=== PATIENT | female | born 1950 | race Caucasian/White ===

== ENCOUNTER 2024-02-23 13:00 | Emergency (ER) | payer BC, OTHER ==
[~2024-02-23] VITALS: Ht 154.9 cm; Wt 58.5 kg
[~2024-02-23 13:00] MED LIST: LISI-782 PO
[2024-02-23 13:07] VITALS: O2SAT 98
[2024-02-23] MEDS: HYDROCODONE/APAP 5-325MG TABLET PO ONE (13:26)
[2024-02-23] MEDS ORDERED: HYDROCODONE/APAP 5-325MG TABLET ONE (13:26)
[2024-02-23 13:35] LABS: BASOPHILS % (AUTO) 0.1 % (0.0-2.0); HEMATOCRIT 38.1 % (31.2-41.9); LYMPHOCYTES # (AUTO) 0.4 K/uL (0.8-4.8); LYMPHOCYTES % (AUTO) 5.2 % (20.5-51.5); MEAN CORPUSCULAR HEMOGLOBIN 32.8 uug (24.7-32.8); MEAN CORPUSCULAR HGB CONC 34 g/dL (32.3-35.6); MEAN CORPUSCULAR VOLUME 96.4 fL (75.5-95.3); MONOCYTES # (AUTO) 1.1 K/uL (0.1-1.30); MONOCYTES % (AUTO) 13.3 % (0.0-11.0); NEUTROPHILS # (AUTO) 6.5 K/uL (1.8-8.9); NEUTROPHILS % (AUTO) 81.4 % (38.5-71.5); PLATELET COUNT (AUTO) 174 K/uL (179-408); RED BLOOD CELL COUNT(AUTO) 3.96 MIL/uL (3.63-4.92); RED CELL DISTRIBUTION WIDTH 13.4 % (12.3-17.7)
[2024-02-23 13:49] LABS: CALCIUM 8.8 mg/dL (8.5-10.1); CARBON DIOXIDE 26 mmol/L (21-32); CHLORIDE 96 mmol/L (98-107); CREATININE 0.8 mg/dL (0.6-1.3); GLUCOSE 150 mg/dL (74-106); POTASSIUM 4.2 mmol/L (3.5-5.1); SODIUM SERUM 134 mmol/L (136-145); UREA NITROGEN, BLOOD 10 mg/dL (7-18)
[2024-02-23 13:54] LABS: DIFFERENTIAL COMMENT 1
[2024-02-23 14:03] LABS: ERYTHROCYTE SEDIMENTATION RATE 30 MM/HR (0-20)
[2024-02-23 14:20] LABS: ALANINE AMINOTRANSFERASE 50 U/L (14-59); ALBUMIN 3.5 g/dL (3.4-5.0); ALKALINE PHOSPHATASE 110 U/L (50-136); ASPARTATE AMINOTRANSFERASE 61 U/L (15-37); BILIRUBIN,DIRECT 0.5 mg/dL (0.0-0.2); BILIRUBIN,TOTAL 1.8 mg/dL (0.2-1.0); MAGNESIUM 1.9 mg/dL (1.8-2.4); TOTAL PROTEIN, SERUM 7.1 g/dL (6.4-8.2)
[2024-02-23] MEDS ORDERED: ACET1TAB23 PO (15:24)
[2024-02-23] MEDS ORDERED: WALK1EAC55 MC (15:32)
--- NOTE | 2024-02-23 16:00 | NUR ---
Patient discharged to home in stable condition with son. Written and verbal after care instructions given. Patient/son verbalizes understanding of instructions. Stressed follow up or return to ER for worsening s/s.
== END 2024-02-23 16:00 | disposition home or self-care (01) ==
LOC: ER 13:02
DX: M79.671 Pain in right foot (principal); R74.01 Elevation of levels of liver transaminase levels; F32.A Depression, unspecified; Z79.1 Long term (current) use of non-steroidal anti-inflammatories (NSAID); Z79.899 Other long term (current) drug therapy
CPT/HCPCS: 36415; 73630; 83735; 84550; 85025; 85651; A4606; A4663

== ENCOUNTER 2025-02-28 21:13 | Inpatient (IN) | payer OTHER ==
[~2025-02-28] VITALS: Ht 142.2 cm; Wt 53.3 kg
[~2025-02-28 21:13] MED LIST changes: +ACET1TAB23 PO; +WALK1EAC55 MC
[2025-02-28 22:09] LABS: PLATELET COUNT (AUTO) 259 K/uL (179-408); RED BLOOD CELL COUNT(AUTO) 3.73 MIL/uL (3.63-4.92); RED CELL DISTRIBUTION WIDTH 13.8 % (12.3-17.7); WHITE BLOOD COUNT (AUTO) 10.6 K/uL (3.8-11.8)
[2025-02-28 22:18] LABS: CREATININE 0.7 mg/dL (0.6-1.3); SODIUM SERUM 138 mmol/L (136-145); UREA NITROGEN, BLOOD 6 mg/dL (7-18)
[2025-02-28 22:24] LABS: ASPARTATE AMINOTRANSFERASE 42 U/L (15-37); TOTAL PROTEIN, SERUM 6.7 g/dL (6.4-8.2)
[2025-02-28 23:45] LABS: *BILIRUBIN,URIN NEGATIVE (NEGATIVE); *BLOOD, URINE NEGATIVE (NEGATIVE); *CLARITY,URINE CLEAR (CLEAR); *COLOR,URINE YELLOW (YELLOW); *KETONES,URINE NEGATIVE (NEGATIVE); *PROTEIN,URINE NEGATIVE (NEGATIVE); *UROBILINOGEN,URINE 0.2 E.U./dl (NORMAL); LEUKOCYTE ESTERASE ,URINE NEGATIVE (NEGATIVE); NITRITE, URINE NEGATIVE (NEGATIVE); UGLUCOSE NEGATIVE (NEGATIVE)
[2025-03-01 00:37] VITALS: BP 130/78
[2025-03-01] MEDS ORDERED: ONDANSETRON 4 MG/2 ML VIAL IV PRN (01:00)
[2025-03-01] MEDS ORDERED: MAGNESIUM HYDROXIDE 30 ML LIQUID UDC PO PRN (01:00)
[2025-03-01] MEDS ORDERED: REMEDY ESSENTIAL ZINC PASTE 113 GM TP PRN (01:00)
[2025-03-01] MEDS ORDERED: ACETAMINOPHEN 325 MG TABLET PO PRN (01:00)
[2025-03-01] MEDS: PANTOPRAZOLE SODIUM 40 MG TABLET.DR PO SCH (06:10)
[2025-03-01 06:52] VITALS: BP 116/62; TEMP 98.7; O2SAT 97
[2025-03-01 07:28] LABS: PLATELET COUNT (AUTO) 202 K/uL (179-408); RED BLOOD CELL COUNT(AUTO) 3.42 MIL/uL (3.63-4.92); RED CELL DISTRIBUTION WIDTH 13.8 % (12.3-17.7); WHITE BLOOD COUNT (AUTO) 9.0 K/uL (3.8-11.8)
[2025-03-01 07:44] LABS: CREATININE 0.8 mg/dL (0.6-1.3); SODIUM SERUM 138 mmol/L (136-145); UREA NITROGEN, BLOOD 7 mg/dL (7-18)
[2025-03-01] MEDS: FUROSEMIDE 20 MG TABLET PO SCH (08:55)
[2025-03-01] MEDS ORDERED: SPIRONOLACTONE 100 MG TABLET PO SCH (09:00)
[2025-03-01] MEDS: SPIRONOLACTONE 50 MG TABLET PO SCH (09:25)
[2025-03-01 11:22] VITALS: BP 103/47; TEMP 97.9; O2SAT 96
[2025-03-01 15:15] VITALS: BP 112/60; TEMP 98.7; O2SAT 96
[2025-03-01 19:10] VITALS: BP 99/47; TEMP 99; O2SAT 97
[2025-03-02 06:17] VITALS: BP 106/51; TEMP 98.1; O2SAT 97
[2025-03-02 06:33] LABS: PLATELET COUNT (AUTO) 201 K/uL (179-408); RED BLOOD CELL COUNT(AUTO) 3.28 MIL/uL (3.63-4.92); RED CELL DISTRIBUTION WIDTH 13.8 % (12.3-17.7); WHITE BLOOD COUNT (AUTO) 7.8 K/uL (3.8-11.8)
[2025-03-02 06:47] LABS: CREATININE 0.7 mg/dL (0.6-1.3); SODIUM SERUM 139 mmol/L (136-145); UREA NITROGEN, BLOOD 6 mg/dL (7-18)
[2025-03-02 06:54] LABS: ASPARTATE AMINOTRANSFERASE 35.0 U/L (15-37); TOTAL PROTEIN, SERUM 5.4 g/dL (6.4-8.2)
[2025-03-02] MEDS: THIAMINE HCL 100 MG TABLET PO SCH (08:35)
[2025-03-02 11:19] VITALS: BP 109/51; TEMP 98.6; O2SAT 96
[2025-03-02] MEDS: POTASSIUM CHLORIDE 20 MEQ TAB.PRT.SR PO ONE (12:46)
[2025-03-02 15:04] VITALS: BP 117/62; TEMP 98.4; O2SAT 96
[2025-03-02 19:47] VITALS: BP 117/81; TEMP 98.9; O2SAT 96
[2025-03-02] MEDS: ACIDOPHILUS/BULGARICUS CHEW TAB PO SCH (20:18)
[2025-03-03 06:36] LABS: PLATELET COUNT (AUTO) 243 K/uL (179-408); RED BLOOD CELL COUNT(AUTO) 3.47 MIL/uL (3.63-4.92); RED CELL DISTRIBUTION WIDTH 13.9 % (12.3-17.7); WHITE BLOOD COUNT (AUTO) 9.5 K/uL (3.8-11.8)
[2025-03-03 06:39] VITALS: BP 113/68; TEMP 98; O2SAT 97
[2025-03-03 11:17] LABS: CREATININE 0.8 mg/dL (0.6-1.3); SODIUM SERUM 137 mmol/L (136-145); UREA NITROGEN, BLOOD 5 mg/dL (7-18)
[2025-03-03 11:23] LABS: ASPARTATE AMINOTRANSFERASE 31 U/L (15-37); TOTAL PROTEIN, SERUM 6.3 g/dL (6.4-8.2)
[2025-03-03 11:30] VITALS: BP 112/54; TEMP 98.4; O2SAT 98
[2025-03-03 14:59] VITALS: BP 118/57; TEMP 98.2; O2SAT 100
[2025-03-03 19:15] VITALS: BP 112/56; TEMP 98.4; O2SAT 97
[2025-03-04 06:48] VITALS: BP 107/55; TEMP 98.9; O2SAT 97
[2025-03-04 07:07] LABS: ASPARTATE AMINOTRANSFERASE 28 U/L (15-37); CREATININE 0.7 mg/dL (0.6-1.3); SODIUM SERUM 139 mmol/L (136-145); TOTAL PROTEIN, SERUM 5.8 g/dL (6.4-8.2); UREA NITROGEN, BLOOD 4 mg/dL (7-18)
[2025-03-04] MEDS ORDERED: THIA100T13 PO (12:31)
[2025-03-04] MEDS ORDERED: SPIR50TA PO (12:31)
[2025-03-04] MEDS ORDERED: ACID1TAB4 PO (12:31)
[2025-03-04] MEDS ORDERED: FURO40TA5 PO (12:31)
[2025-03-04 13:38] LABS: TOTAL VOLUME,BODY FLUID 1800 mL
[2025-03-04 14:46] LABS: WBC, BODY FLUID 130 /cu. mm (0-200/cu.mm)
[2025-03-05] MEDS ORDERED: FUROSEMIDE 40 MG TABLET PO SCH (09:00)
== END 2025-03-04 19:30 | disposition home or self-care (01) | DRG 433 ==
LOC: ER 21:25 → MEDSURG3 03-01 01:25
PROVIDERS: ADMIT Registered Nurse Psychiatric/Mental Health; ATTEND Nurse Practitioner Acute Care
PROC: 0W9G3ZX Drainage of Peritoneal Cavity, Percutaneous Approach, Diagnostic (ICD-10-PCS; principal; 2025-03-04)
DX: K74.60 Unspecified cirrhosis of liver (principal); E44.0 Moderate protein-calorie malnutrition; R18.8 Other ascites; R29.6 Repeated falls; E87.70 Fluid overload, unspecified; E88.09 Other disorders of plasma-protein metabolism, not elsewhere classified; K59.00 Constipation, unspecified; Z79.899 Other long term (current) drug therapy; I11.9 Hypertensive heart disease without heart failure; F10.11 Alcohol abuse, in remission; K52.9 Noninfective gastroenteritis and colitis, unspecified
CPT/HCPCS: 36415; 76705; 83690; 83735; 83986; 84100; 85025; 85730; 86803; 87070; 87205; A4663; G0378

== ENCOUNTER 2025-06-05 11:55 | Emergency (ER) | payer MEDICARE, OTHER ==
[~2025-06-05] VITALS: Ht 142.2 cm; Wt 52.2 kg
[~2025-06-05 11:55] MED LIST changes: -ACET1TAB23 PO; +ACID1TAB4 PO; +FURO40TA5 PO; -LISI-782 PO; +SPIR50TA PO; +THIA100T13 PO; -WALK1EAC55 MC
[2025-06-05 12:10] VITALS: BP 138/92; O2SAT 96
[2025-06-05 12:54] LABS: PLATELET COUNT (AUTO) 293 K/uL (179-408); RED BLOOD CELL COUNT(AUTO) 3.87 MIL/uL (3.63-4.92); RED CELL DISTRIBUTION WIDTH 14.7 % (12.3-17.7); WHITE BLOOD COUNT (AUTO) 4.9 K/uL (3.8-11.8)
[2025-06-05 13:06] LABS: CREATININE 0.8 mg/dL (0.6-1.3); SODIUM SERUM 134 mmol/L (136-145); UREA NITROGEN, BLOOD 10 mg/dL (7-18)
[2025-06-05 13:11] LABS: ASPARTATE AMINOTRANSFERASE 29 U/L (15-37); TOTAL PROTEIN, SERUM 6.7 g/dL (6.4-8.2)
[2025-06-05 13:23] LABS: LYMPHOCYTES % (MANUAL) 14 % (20-40); MONOCYTES % (MANUAL) 9 % (2-10); NEUTROPHILS % (MANUAL) 77 % (42-75); PLATELET ESTIMATE ADEQUATE
[2025-06-05] MEDS ORDERED: LEVO100T PO (14:59)
[2025-06-05] MEDS ORDERED: PHYT100T PO (14:59)
== END 2025-06-05 15:35 | disposition home or self-care (01) ==
LOC: ER 11:55
DX: E03.9 Hypothyroidism, unspecified (principal); E46 Unspecified protein-calorie malnutrition; E83.51 Hypocalcemia; I51.9 Heart disease, unspecified; K57.30 Diverticulosis of large intestine without perforation or abscess without bleeding; K74.60 Unspecified cirrhosis of liver; R18.8 Other ascites; Z79.899 Other long term (current) drug therapy; Z91.148 Patient's other noncompliance with medication regimen for other reason
CPT/HCPCS: 36415; 70030-TC; 83605; 84443; 84484; 85610; A4606; A4663